=== PATIENT | female | born 1990 | race Caucasian/White ===

== ENCOUNTER → 2017-05-18 | Outpatient (REF) | payer OTHER ==
[~2017-05-18] MED LIST: /AUGM875TA; /CELE20CA; COLA100C2; VICO5TAB
== END ==
LOC: M LAB REF 17:19
PROVIDERS: ATTEND Physician Assistant Medical
DX: N39.0 Urinary tract infection, site not specified (principal)

== ENCOUNTER → 2017-06-18 | Outpatient (REF) | payer OTHER | LOC: M LAB REF 14:18 | PROVIDERS: ATTEND Specialist | DX: Z12.4 Encounter for screening for malignant neoplasm of cervix (principal) ==

== ENCOUNTER 2017-12-11 03:38 | Emergency (ER) | payer OTHER ==
[2017-12-11] MEDS: TOBRAMYCIN 0.3% OPHTH SOLN 5 ML OU (05:15)
[2017-12-11 05:20] LABS: HEMATOCRIT 39.2 % (36.0-47.0); HEMOGLOBIN 13.6 g/dl (12.0-16.0); MEAN CORPUSCULAR HEMOGLOBIN 29.1 pg (27.0-33.0); MEAN CORPUSCULAR HGB CONC 34.7 g/dl (32.0-36.5); MEAN CORPUSCULAR VOLUME 83.8 fl (80.0-96.0); PLATELET COUNT, AUTOMATED 231 10^3/uL (150-450); RED BLOOD COUNT 4.68 10^6/uL (4.00-5.40); RED CELL DISTRIBUTION WIDTH 12.2 % (11.5-14.5); WHITE BLOOD COUNT 8.5 10^3/uL (4.0-10.0)
[2017-12-11 05:23] LABS: ADD MANUAL DIFFER YES; DIFF SLIDE NUMBER 99; POSITIVE DIFF POS FLAG
[2017-12-11 05:57] LABS: HIVEXPOSED0 NEGATIVE (NEGATIVE)
[2017-12-11 05:58] LABS: ATYPICAL LYMPH 6 % (0-5); EOSINOPHILS 2 % (0-5); LYMPHOCYTES 49 % (16-52); MONOCYTES 6 % (0-8); NEUTROPHILS 37 % (35-75)
[2017-12-11 05:59] LABS: PLATELET ESTIMATE NORMAL (NORMAL)
[2017-12-11 06:00] LABS: CONTROL LINE INT CTR LINE PRESENT; HIV EXPOSED PT 1 NEGATIVE (NEGATIVE)
[2017-12-11 08:14] LABS: ALBUMIN/GLOBULIN RATIO 1.25 (1.00-1.93); ALKALINE PHOSPHATASE 41 U/L (45-117); ALT/SGPT 12 U/L (12-78); ANION GAP 11 MEQ/L (8-16); AST/SGOT 10 U/L (7-37); BILIRUBIN,TOTAL 0.2 MG/DL (0.2-1.0); BLOOD UREA NITROGEN 19 MG/DL (7-18); CARBON DIOXIDE LEVEL 23 MEQ/L (21-32); CHLORIDE LEVEL 107 MEQ/L (98-107); CREATININE FOR GFR 0.76 MG/DL (0.55-1.30); GLOMERULAR FILTRATION RATE > 60.0 (>60); GLUCOSE, FASTING 83 MG/DL (70-100); POTASSIUM SERUM 3.8 MEQ/L (3.5-5.1); SODIUM LEVEL 141 MEQ/L (136-145); TOTAL PROTEIN 7.2 GM/DL (6.4-8.2)
[2017-12-13 10:17] LABS: HEPATITIS B SURFACE ANTIBODY NEGATIVE (POSITIVE)
[2017-12-13 10:26] LABS: HEPATITIS B SURFACE ANTIGEN NEGATIVE (NEGATIVE)
[2017-12-13 10:51] LABS: HEPATITIS C VIRUS ABY INDEX < 0.0 INDEX (<0.8)
== END 2017-12-11 05:33 | disposition home or self-care (01) ==
LOC: M ED 03:38
DX: Z77.21 Contact with and (suspected) exposure to potentially hazardous body fluids (principal)
CPT/HCPCS: 80053

== ENCOUNTER 2018-03-28 08:52 | Emergency (ER) | payer OTHER ==
[2018-03-28] MEDS: ADACEL/BOOSTRIX VACCINE (DIPHTH/PERTUSS/ACELL/TETANUS)0.5ML SYR (90715) IM (10:19)
[2018-03-28] MEDS: RABIES VACCINE HUMAN 2.5 INTERNATIONAL UNITS/ML VIAL (90675) IM (10:27)
[2018-03-28] MEDS: RABIES IMMUNE GLOBULIN 1500 INTERNATIONAL UNITS/10 ML VIAL (90375) IM (10:28)
== END 2018-03-28 11:01 | disposition home or self-care (01) ==
LOC: M ED 08:52
DX: Z20.3 Contact with and (suspected) exposure to rabies (principal); Z23 Encounter for immunization
CPT/HCPCS: 90715

== ENCOUNTER 2018-03-31 11:13 | Emergency (ER) | payer OTHER ==
[2018-03-31] MEDS: RABIES VACCINE HUMAN 2.5 INTERNATIONAL UNITS/ML VIAL (90675) IM (12:58)
== END 2018-03-31 13:06 | disposition home or self-care (01) ==
LOC: M ED 11:13
DX: Z20.3 Contact with and (suspected) exposure to rabies (principal); Z23 Encounter for immunization
CPT/HCPCS: 90675

== ENCOUNTER 2018-04-04 06:25 | Emergency (ER) | payer OTHER ==
[2018-04-04] MEDS: RABIES VACCINE HUMAN 2.5 INTERNATIONAL UNITS/ML VIAL (90675) IM (06:53)
== END 2018-04-04 07:03 | disposition home or self-care (01) ==
LOC: M ED 06:25
DX: Z20.3 Contact with and (suspected) exposure to rabies (principal); Z23 Encounter for immunization
CPT/HCPCS: 90675

== ENCOUNTER 2018-04-11 19:08 | Emergency (ER) | payer OTHER ==
[2018-04-11] MEDS: RABIES VACCINE HUMAN 2.5 INTERNATIONAL UNITS/ML VIAL (90675) IM (19:41)
== END 2018-04-11 19:46 | disposition home or self-care (01) ==
LOC: M ED 19:08
DX: Z20.3 Contact with and (suspected) exposure to rabies (principal); Z23 Encounter for immunization
CPT/HCPCS: 90675

== ENCOUNTER 2018-05-29 00:30 | Observation (INO) | payer OTHER ==
[2018-05-29] MEDS ORDERED: PERCOCET 5MG/325MG TAB PO (01:15)
[2018-05-29] MEDS ORDERED: ACETAMINOPHEN TAB 650MG DOSE (2X325MG) PO (01:15)
[2018-05-29 01:28] LABS: BASO % 0.1 % (0.0-1.0); HEMATOCRIT 39.1 % (36.0-47.0); HEMOGLOBIN 13.5 g/dl (12.0-15.5); IMMATURE GRANULOCYTE % 0.4 % (0-3.0); LYMPH # 0.9 10^3/uL (1.5-6.5); LYMPH % 8.1 % (24.0-44.0); MEAN CORPUSCULAR HEMOGLOBIN 28.8 pg (27.0-33.0); MEAN CORPUSCULAR HGB CONC 34.5 g/dl (32.0-36.5); MEAN CORPUSCULAR VOLUME 83.5 fl (80.0-96.0); MONO # 0.7 10^3/uL (0.0-0.8); MONO % 6.5 % (0.0-5.0); NEUTROPHILS # 9.5 10^3/uL (1.8-7.7); NEUTROPHILS % 84.9 % (36.0-66.0); PLATELET COUNT, AUTOMATED 219 10^3/uL (150-450); RED BLOOD COUNT 4.68 10^6/uL (4.00-5.40); RED CELL DISTRIBUTION WIDTH 12.5 % (11.5-14.5); WHITE BLOOD COUNT 11.2 10^3/uL (4.0-10.0)
[2018-05-29 01:45] LABS: ANION GAP 10 MEQ/L (8-16); BLOOD UREA NITROGEN 14 MG/DL (7-18); CALCIUM LEVEL 8.6 MG/DL (8.5-10.1); CARBON DIOXIDE LEVEL 23 MEQ/L (21-32); CHLORIDE LEVEL 111 MEQ/L (98-107); CREATININE FOR GFR 0.77 MG/DL (0.55-1.30); GLOMERULAR FILTRATION RATE > 60.0 (>60); GLUCOSE, FASTING 124 MG/DL (70-100); POTASSIUM SERUM 3.6 MEQ/L (3.5-5.1); SODIUM LEVEL 144 MEQ/L (136-145)
[2018-05-29] MEDS: PERCOCET 5MG/325MG TAB PO ×4 (02:16→21:54)
[2018-05-29] MEDS: MORPHINE 4 MG/ML 1ML VIAL/SYRINGE (J2270) IV ×2 (05:54→18:37)
[2018-05-29] MEDS: SENOKOT S TAB PO ×2 (09:00→21:13)
[2018-05-29] MEDS: KETOROLAC 30 MG/ML VIAL (J1885) IV (10:22)
[2018-05-29] MEDS: CelecoXIB (CeleBREX) 100 MG CAP PO ×2 (11:00→23:06)
[2018-05-29] MEDS: BACLOFEN 5MG PER 1/2 TABLET PO ×2 (12:13→21:13)
[2018-05-29] MEDS: ENOXAPARIN 40 MG/0.4 ML SYRINGE (J1650) SC (16:31)
[2018-05-29] MEDS: ONDANSETRON 4MG/2ML VIAL (J2405) IV (19:37)
[2018-05-30] MEDS: PERCOCET 5MG/325MG TAB PO (04:11)
[2018-05-30] MEDS: ONDANSETRON 4MG/2ML VIAL (J2405) IV (08:25)
[2018-05-30] MEDS ORDERED: SLF 3 ML SYR IV ×2 (08:45→14:00)
[2018-05-30] MEDS: BACLOFEN 5MG PER 1/2 TABLET PO (09:49)
[2018-05-30] MEDS: SENOKOT S TAB PO (09:49)
[2018-05-30] MEDS: CelecoXIB (CeleBREX) 100 MG CAP PO (09:52)
[2018-05-30] MEDS: ENOXAPARIN 40 MG/0.4 ML SYRINGE (J1650) SC (10:14)
== END 2018-05-30 13:10 | disposition home or self-care (01) ==
LOC: M ED INP 00:30 → M PCU 00:49
DX: S32.019A Unspecified fracture of first lumbar vertebra, initial encounter for closed fracture (principal); S22.42XA Multiple fractures of ribs, left side, initial encounter for closed fracture; S27.0XXA Traumatic pneumothorax, initial encounter; S80.11XA Contusion of right lower leg, initial encounter; V86.65XA Passenger of 3- or 4- wheeled all-terrain vehicle (ATV) injured in nontraffic accident, initial encounter; Z79.899 Other long term (current) drug therapy; Y92.89 Other specified places as the place of occurrence of the external cause; Y93.55 Activity, bike riding; Y99.9 Unspecified external cause status
CPT/HCPCS: J2270

== ENCOUNTER 2018-06-13 07:53 | Outpatient (RCR) | payer OTHER | END 2018-06-26 | LOC: M PT 07:53 | DX: S80.01XD Contusion of right knee, subsequent encounter (principal); S22.42XD Multiple fractures of ribs, left side, subsequent encounter for fracture with routine healing; S22.009D Unspecified fracture of unspecified thoracic vertebra, subsequent encounter for fracture with routine healing | CPT/HCPCS: 97110 ==

== ENCOUNTER 2018-06-27 15:30 | Outpatient (RCR) | payer OTHER | END 2018-07-27 | LOC: M PT 06-29 08:06 | DX: S80.01XD Contusion of right knee, subsequent encounter (principal); S22.42XD Multiple fractures of ribs, left side, subsequent encounter for fracture with routine healing; S22.009D Unspecified fracture of unspecified thoracic vertebra, subsequent encounter for fracture with routine healing | CPT/HCPCS: 97110 ==

== ENCOUNTER → 2019-03-07 | Outpatient (REF) | payer OTHER ==
[~2019-03-07] MED LIST changes: -/CELE20CA; +BACL10TA2 PO; +CELE100C PO; +CELE1CAP4; +Docusate Sod/Senna PO; +NUVAMIS2 IU; +PERCOCET PO; +VITMTA PO; +[UNRECOGNIZED DRUG - CODE] XX
[2019-03-07 13:14] LABS: BASO % 0.1 % (0.0-1.0); EOS % 0.6 % (0.0-3.0); HEMATOCRIT 40.2 % (36.0-47.0); HEMOGLOBIN 13.9 g/dl (12.0-15.5); LYMPH # 2.6 10^3/uL (1.5-6.5); LYMPH % 37.2 % (24.0-44.0); MEAN CORPUSCULAR HEMOGLOBIN 29.8 pg (27.0-33.0); MEAN CORPUSCULAR HGB CONC 34.6 g/dl (32.0-36.5); MEAN CORPUSCULAR VOLUME 86.1 fl (80.0-96.0); MONO # 0.5 10^3/uL (0.0-0.8); NEUTROPHILS # 3.8 10^3/uL (1.8-7.7); NEUTROPHILS % 54.8 % (36.0-66.0); PLATELET COUNT, AUTOMATED 242 10^3/uL (150-450); RED BLOOD COUNT 4.67 10^6/uL (4.00-5.40)
[2019-03-07 15:10] LABS: CHLAMYDIA DNA AMPLIFICATION NEGATIVE (NEGATIVE); GC DNA AMPLIFICATION NEGATIVE (NEGATIVE)
[2019-03-08 10:59] LABS: HEPATITIS C VIRUS ABY INDEX < 0.0 INDEX (<0.8); HIV 1&2 SCREEN CENTAUR NEGATIVE (NEGATIVE); RUBELLA IgG QUALITATIVE IMMUNE (IMMUNE)
== END ==
LOC: M LABDRAW1 12:40
PROVIDERS: ATTEND Obstetrics & Gynecology
DX: Z34.81 Encounter for supervision of other normal pregnancy, first trimester (principal); Z3A.08 8 weeks gestation of pregnancy

== ENCOUNTER → 2019-03-14 | Outpatient (REF) | payer OTHER | LOC: M LAB REF 17:27 | PROVIDERS: ATTEND Specialist | DX: Z34.01 Encounter for supervision of normal first pregnancy, first trimester (principal) ==

== ENCOUNTER → 2019-05-08 | Outpatient (CLI) | payer OTHER ==
--- NOTE | 2019-05-08 10:01 | REP ---
REASON: anatomical screen. PRIORS: None. Multiple ultrasonographic images of the gravid uterus show a single living intrauterine gestation in the cephalic presentation. Doppler interrogation of the heart shows a heart rate of 150 beats per minute. The placenta is posterior and not low lying. The subjective amniotic fluid volume is within normal limits. The cervix measures 3.7 cm in length and is closed. Evaluation of the maternal adnexal spaces showed no abnormalities. BPD 4.7 cm = 20 weeks 2 days HC 17.1 cm = 19 weeks 5 days AC 15.3 cm = 20 weeks 4 days FL 3.2 cm = 19 weeks 6 days The estimated weight is 334 grams which is at the 66th percentile for a 19 week 4 day gestational age. The anatomical structures seen as unremarkable are as follows: thalami, cavum septum pellucidum, cerebellum, cisterna magna, cerebral ventricles, spine, kidneys, stomach, cord insertion, three vessel umbilical cord, kidneys, urinary bladder, upper lip, and extremities. The structures seen suboptimally are as follows: Four chamber heart and left ventricular outflow tract. IMPRESSION: Single living intrauterine gestation as described above and estimated gestational age of 20 weeks 0 days via composite criteria and an estimated date of delivery of 09/25/2019 by today's exam. No anomalies were detected, however, I would recommend a followup examination to better visualize the four chamber heart and left ventricular outflow tract. Electronically Signed by Fabián Cheng DO 05/08/2019 10:03 A
== END ==
LOC: M RAD 06:11
PROVIDERS: ATTEND Advanced Practice Midwife
DX: Z34.82 Encounter for supervision of other normal pregnancy, second trimester (principal); Z3A.19 19 weeks gestation of pregnancy

== ENCOUNTER → 2019-06-09 | Outpatient (CLI) | payer OTHER ==
--- NOTE | 2019-06-09 09:16 | REP ---
OB ULTRASOUND: Real-time sonographic evaluation of the gravid uterus performed. There is a single living intrauterine gestation, estimated gestational age 24 weeks 1 day, EDC 09/28/2019. Today's measurements indicate appropriate growth. BPD 59 mm 24 weeks 2 days, 52nd percentile HC 224 mm 24 weeks 3 days, 56th percentile AC 210 mm 25 weeks 4 days, 79th percentile FL 43 mm 24 weeks 1 day, 52nd percentile HC/AC ratio 1.07 within normal range. Estimated weight 742 grams, 67th percentile. Cervix is closed and measures 3.4 cm in length. heart rate 136 beats per minute. SEEN/GROSSLY UNREMARKABLE Lateral ventricles Yes Posterior fossa Yes Upper lip Yes Four-chamber heart Yes LVOT Yes RVOT Yes Stomach Yes Cord insertion Yes Three vessel cord Yes Kidneys Yes Bladder Yes Spine No position: Breech. Placenta: Posterior and grade 0 with no previa or abruption. Amniotic fluid: Within normal limits. Electronically Signed by Brandon Hall MD 06/09/2019 11:30 A
== END ==
LOC: M RAD 08:00
PROVIDERS: ATTEND Advanced Practice Midwife
DX: Z34.82 Encounter for supervision of other normal pregnancy, second trimester (principal)

== ENCOUNTER → 2019-07-10 | Outpatient (CLI) | payer OTHER ==
[2019-07-10 09:59] LABS: HEMATOCRIT 35.1 % (36.0-47.0); HEMOGLOBIN 11.6 g/dl (12.0-15.5); MEAN CORPUSCULAR HEMOGLOBIN 28.9 pg (27.0-33.0); MEAN CORPUSCULAR VOLUME 87.3 fl (80.0-96.0); PLATELET COUNT, AUTOMATED 160 10^3/uL (150-450); RED BLOOD COUNT 4.02 10^6/uL (4.00-5.40); WHITE BLOOD COUNT 9.6 10^3/uL (4.0-10.0)
== END ==
LOC: M LAB 08:12
PROVIDERS: ATTEND Obstetrics & Gynecology
DX: O26.892 Other specified pregnancy related conditions, second trimester (principal); Z3A.00 Weeks of gestation of pregnancy not specified

== ENCOUNTER → 2019-07-17 | Outpatient (REF) | payer OTHER ==
[2019-07-17 17:16] LABS: ALBUMIN 2.8 GM/DL (3.2-5.2); ALT/SGPT 15 U/L (12-78); BILIRUBIN,TOTAL 0.2 MG/DL (0.2-1.0); BLOOD UREA NITROGEN 12 MG/DL (7-18); C REACTIVE PROTEIN QUANTITATIV 1.14 MG/DL (0.00-0.30); CALCIUM LEVEL 8.8 MG/DL (8.5-10.1); CARBON DIOXIDE LEVEL 25 MEQ/L (21-32); CHLORIDE LEVEL 107 MEQ/L (98-107); COMPLEMENT C3 117 MG/DL (90-180); COMPLEMENT C4 24 MG/DL (10-40); CREATININE FOR GFR 0.51 MG/DL (0.55-1.30); GLOMERULAR FILTRATION RATE > 60.0 (>60); GLUCOSE, FASTING 89 MG/DL (70-100); POTASSIUM SERUM 3.9 MEQ/L (3.5-5.1); SODIUM LEVEL 140 MEQ/L (136-145); TOTAL PROTEIN 6.1 GM/DL (6.4-8.2)
[2019-07-18 10:17] LABS: DRVV SCREEN 37.5 SEC; PTT LUPUS TYPE ANTICOAG SCREEN 0.9 (0-1.2)
[2019-07-20 00:16] LABS: CARDIOLIPIN IGA ANTIBODY <9 APL U/mL (0-11); CARDIOLIPIN IGG ANTIBODY <9 GPL U/mL (0-14); CARDIOLIPIN IGM ANTIBODY <9 MPL U/mL (0-12)
== END ==
LOC: M LABDRAW1 15:34
PROVIDERS: ATTEND Specialist
DX: R21 Rash and other nonspecific skin eruption (principal)

== ENCOUNTER → 2019-09-11 | Outpatient (REF) | payer OTHER | LOC: M SFHCWAGY 13:11 | PROVIDERS: ATTEND Specialist | DX: Z34.93 Encounter for supervision of normal pregnancy, unspecified, third trimester (principal) ==

== ENCOUNTER 2019-09-16 16:31 | Outpatient (CLI) | payer OTHER ==
[~2019-09-16] VITALS: Ht 165.1 cm; Wt 87.7 kg
[2019-09-16 16:49] VITALS: BP 123/85
[2019-09-16] MEDS ORDERED: PRENTAB9 PO (16:57)
== END 2019-09-16 18:05 | disposition home or self-care (01) ==
LOC: M LDO 16:31
PROVIDERS: ATTEND Obstetrics & Gynecology
DX: O26.893 Other specified pregnancy related conditions, third trimester (principal); M54.5 Low back pain; O99.89 Other specified diseases and conditions complicating pregnancy, childbirth and the puerperium; N89.8 Other specified noninflammatory disorders of vagina; O47.1 False labor at or after 37 completed weeks of gestation; Z3A.38 38 weeks gestation of pregnancy
CPT/HCPCS: 59025; G0378; G0463

== ENCOUNTER 2019-09-25 21:26 | Inpatient (IN) | payer OTHER ==
[~2019-09-25 21:26] MED LIST changes: +PRENTAB9 PO
[2019-09-25 22:16] LABS: HEMATOCRIT 35.2 % (36.0-47.0); HEMOGLOBIN 11.2 g/dl (12.0-15.5); MEAN CORPUSCULAR HEMOGLOBIN 25.6 pg (27.0-33.0); MEAN CORPUSCULAR HGB CONC 31.8 g/dl (32.0-36.5); MEAN CORPUSCULAR VOLUME 80.5 fl (80.0-96.0); PLATELET COUNT, AUTOMATED 217 10^3/uL (150-450); RED BLOOD COUNT 4.37 10^6/uL (4.00-5.40); WHITE BLOOD COUNT 15.2 10^3/uL (4.0-10.0)
--- NOTE | 2019-09-26 01:39 | IPNPDOC ---
Obstetrical Progress Note Date of Service Sep 26, 2019 Subjective Patient reports her contractions have gotten more painful. Vomiting with contractions. Assessment Heart Rate (FHR): 130 Variability: Moderate Accelerations: Positive Decelerations: None Heart Rate Tracing: Category I Tocometer Contractions: Yes Frequency: regular Sterile Vaginal Examination Dilation: 7 cm Effacement (%): 100% Station: -1 Postion/Presentation: Cephalic presentation Assessment and Plan Status: Reassuring Group B Streptococcus: Negative Anticipate: Vaginal Delivery Additional Comments AROM to a small amount of clear fluid. Zofran ordered due to patient's vomiting. ERNA ARORA CNM Sep 26, 2019 01:39
[2019-09-26] MEDS ORDERED: LR 1,000 ML IV ONE (01:45)
[2019-09-26] MEDS ORDERED: ONDANSETRON 4MG/2ML VIAL (J2405) IV SCH (02:00)
[2019-09-26] MEDS ORDERED: FENTANYL 2MCG/ML ROPIVACAINE 0.2% IN 0.9% NACL 100ML IVBAG As Ordered ONE (02:05)
[2019-09-26] MEDS ORDERED: OXYTOCIN 30 UNITS IN 0.9% NaCl 500ML IV BAG (J2590) As Ordered ONE (03:39)
[2019-09-26] MEDS ORDERED: OXYTOCIN DRIP 30 UNITS in IV 1 EA IV SCH (04:49)
[2019-09-26] MEDS ORDERED: diphenhydrAMINE INJ 50MG/ML VIAL (J1200) IV PRN (05:00)
[2019-09-26] MEDS ORDERED: ANUSOL HC CREAM 30GM TOP PRN (05:00)
[2019-09-26] MEDS ORDERED: EPIDURAL COMMENT XX SCH (05:00)
[2019-09-26] MEDS ORDERED: ONDANSETRON 4MG/2ML VIAL (J2405) IV PRN (05:00)
[2019-09-26] MEDS ORDERED: NALOXONE INJ 0.4 MG/1 ML VIAL (J2310) IV PRN (05:00)
[2019-09-26] MEDS ORDERED: FENTANYL/ROPIVACAINE/NACL BAG 100 ML EPIDURAL SCH (05:00)
[2019-09-26] MEDS ORDERED: ePHEDrine SULFATE 25 MG/5 ML(5MG/ML) SYRINGE IV PRN (05:00)
[2019-09-26] MEDS ORDERED: LIDOCAINE 1% MDV 20ML VIAL INFIL ONE (05:00)
[2019-09-26] MEDS ORDERED: IBUPROFEN 600 MG TAB PO PRN (05:00)
[2019-09-26] MEDS ORDERED: METHYLERGONOVINE MALEATE 0.2 MG TAB PO PRN (05:00)
[2019-09-26] MEDS ORDERED: ACETAMINOPHEN TAB 650MG DOSE (2X325MG) PO PRN (05:00)
[2019-09-26] MEDS ORDERED: RHOGAM 300 MCG (1500 IU) INJ (J2790) IM SCH (05:00)
[2019-09-26] MEDS ORDERED: EPIDURAL/PCA KEYS XX PRN (05:00)
[2019-09-26] MEDS ORDERED: MEASLES,MUMPS,RUBELLA VACCINE INJ (MMR-II) (90707) SC SCH (05:00)
[2019-09-26] MEDS ORDERED: REFRIGERATOR IV KEYS XX PRN (05:00)
[2019-09-26] MEDS: IBUPROFEN 800 MG TAB PO PRN ×3 (05:37→21:03)
--- NOTE | 2019-09-26 06:05 | DNPDOC ---
[facility] Delivery Note Delivery Note DATE OF DELIVERY: 09/26/19 at 0357. PREDELIVERY DIAGNOSIS: 39-5/7 weeks' gestation and labor. POST DELIVERY DIAGNOSIS: Delivered. PROCEDURE: Spontaneous vaginal delivery. PRESIDENT FIN[employer]CIAL INSTITUTION: Erna Camacho CNM, GASPER Melgoza DO PGY 3 present for delivery ANESTHESIA: none-attempted epidural without success. ESTIMATED BLOOD LOSS: 300 mL. FINDINGS: 8 pounds 1 ounce; 3660 grams; female infant, Score 9/10, shoulder dystocia less than 30 seconds resolved with one intervention-Abi. DELIVERY SUMMARY: Patient is a 29-year-old female who is now a at 39.5 weeks gestation who presented to L&D in active labor. The patient attempted to get an epidural without success. She progressed to fully dilated at 0325 and pushed to a living female in the ESHA position with restitution to ROT. The anterior shoulder delivered with a reposition and 2nd attempt of Abi. The corpus immediately followed and was placed [id number] with patient at 0357. The cord was clamped after pulsation ceased and cut by the FOB. The placenta delivered spontaneously and intact at 0400. Uterine hemostasis was achieved via rapid infusion of IV Pitocin and fundal massage. The perineum, vagina, and cervix was inspected and fount to have a left labial laceration with bilateral labial minda-urethral laceration, which was repaired with a 4.0 Vicryl Rapide- RB1. The labial laceration was repaired with a 3.[address]-1. They plan on naming their daughter "Beverly Cardona." Mom plans to breast feed. Both mom and baby are in stable condition. ERNA CAMACHO CNM Sep 26, 2019 06:05
[2019-09-26 07:10] VITALS: BP 117/64
[2019-09-26] MEDS: DIBUCAINE 1% OINTMENT 30GM TOP PRN (07:16)
--- NOTE | 2019-09-26 08:09 | HPE ---
DATE OF ADMISSION: 09/25/2019 CHIEF COMPLAINT: Labor. HISTORY OF PRESENT ILLNESS Valeria is a 28-year-old G0-P0-0-0 at 39 weeks 4 days estimated gestational age by last menstrual period of 12/22/2018 confirmed by first trimester ultrasound. She presents complaining of contractions every 3-5 minutes lasting a minutes each that started about 5:30 p.m. She was seen by Dr. Dyson in the office today who stripped her membranes at that time. She thinks that she broke her water as she was walking into triage. She is feeling baby move. She denies any bleeding or extra discharge. She initiated care at [facility] in the first trimester and has been compliant with treatment. LABS: Blood type O+, antibody screen negative, rubella immune, VDRL nonreactive, hepatitis B surface antigen negative, HIV negative, hepatitis C nonreactive, chlamydia negative gonorrhea negative. Panorama reported at low risk. Diabetes screen negative. Obstetrical ultrasound shows a single intrauterine with a posterior placenta without previa or abruption. OBSTETRICAL HISTORY: None. PAST MEDICAL HISTORY: Asthma and seasonal allergies. MEDICATIONS: vitamins and albuterol inhaler as needed (p.r.n.). PAST SURGICAL HISTORY: Colposcopy. Allergies: None. SOCIAL HISTORY: The patient is . Denies tobacco, alcohol or drug use. PHYSICAL EXAMINATION Abdomen: Gravid. Spontaneous vaginal examination: 5 cm, 80% effaced, -1 station. FHR: Rate is about 138 beats per minute, moderate variability, excels, no decelerations. Category one tracing. TOCO: Contractions every 3-4 minutes. ASSESSMENT/PLAN 1. This is a single intrauterine at 39 weeks 4 days gestation in labor. Admit to labor and delivery with routine labs and orders. 2. GBS negative. No antibiotics needed. 3. Epidural if patient desires. 4. Anticipate spontaneous vaginal delivery. My faculty preceptor for this patient encounter was physically present during the encounter and was fully available. All aspects of the patient interview, examination, medical decision making process, and medical care plan development were reviewed and approved by the faculty preceptor. The faculty preceptor is aware and concurs with the plan as stated in the body of this note and will attest to such by his/her co-signature. ANTONETTE
[2019-09-26] MEDS: PRENATAL VITAMINS CHEWABLE TABLET PO SCH (08:51)
[2019-09-26] MEDS: ACETAMINOPHEN 500 MG TAB PO PRN ×2 (08:52→16:59)
[2019-09-26 17:49] VITALS: BP 114/65
[2019-09-26] MEDS: DOCUSATE SODIUM 100 MG CAP PO PRN (21:02)
[2019-09-27] MEDS: ACETAMINOPHEN 500 MG TAB PO PRN (01:17)
[2019-09-27] MEDS: IBUPROFEN 800 MG TAB PO PRN (05:34)
[2019-09-27 05:59] VITALS: BP 107/60
--- NOTE | 2019-09-27 06:45 | IPNPDOC ---
Text Note Date of Service The patient was seen on 09/27/19. NOTE Day 1 S/p vaginal delivery; uncomplicated S:Patient's pain is well-controlled this time. Lochia and bleeding has been decreasing. Patient is able to get up and walk around without difficulty. Patient is eating and drinking. Patient does complain of some mild cramping. Patient is otherwise doing well. O: vitals see below Gen.: Alert and oriented female who is laying in bed comfortably walked in. Patient was in no acute distress. Abd: Uterine fundus height 1 cm below the umbilicus and firm. Ext: Nonedematous A/P: 29 yo G 1 now P 1. day 1 status post vaginal delivery Hemodynamically stable, afebrile, good pain control. Recovering well. -Routine care and advancement. -Anticipate discharge tomorrow VS,Fishbone, I+O VS, Fishbone, I+O Vital Signs Date Time Temp Pulse Resp B/P (MAP) Pulse Ox O2 Delivery O2 Flow Rate FiO2 09/27/19 05:59 98.1 78 16 107/60 (76) 98 Room Air I&O- Last 24 Hours up to 6 AM 09/27/19 06:00 Intake Total 1500 ml Output Total 800 ml Balance 700 ml GME ATTESTATION GME ATTESTATION My faculty preceptor for this patient encounter was physically present during the encounter and was fully available. All aspects of the patient interview, examination, medical decision making process, and medical care plan development were reviewed and approved by the faculty preceptor. The faculty preceptor is aware and concurs with the plan as stated in the body of this note and will attest to such by his/her cosignature. MICKI MARI DO Sep 27, 2019 06:45
[2019-09-27] MEDS: PRENATAL VITAMINS CHEWABLE TABLET PO SCH (11:07)
[2019-09-27 17:45] VITALS: BP 126/71
[2019-09-27] MEDS: DOCUSATE SODIUM 100 MG CAP PO PRN (20:55)
[2019-09-28] MEDS: IBUPROFEN 800 MG TAB PO PRN (05:38)
[2019-09-28 06:10] VITALS: BP 124/67
[2019-09-28] MEDS: PRENATAL VITAMINS CHEWABLE TABLET PO SCH (08:41)
[2019-09-28] MEDS: ACETAMINOPHEN 500 MG TAB PO PRN (08:42)
[2019-09-28] MEDS: DIBUCAINE 1% OINTMENT 30GM TOP PRN (11:14)
== END 2019-09-28 11:55 | disposition home or self-care (01) | DRG 807 ==
LOC: M LDO 21:26 → M LDI 21:53 → M OBS 09-26 07:00
PROVIDERS: ADMIT Advanced Practice Midwife; ATTEND Advanced Practice Midwife
PROC: 10E0XZZ Delivery of Products of Conception, External Approach (ICD-10-PCS; principal; 2019-09-26)
PROC: 10907ZC Drainage of Amniotic Fluid, Therapeutic from Products of Conception, Via Natural or Artificial Opening (ICD-10-PCS; 2019-09-26)
PROC: 0HQ9XZZ Repair Perineum Skin, External Approach (ICD-10-PCS; 2019-09-26)
PROC: 0UQMXZZ Repair Vulva, External Approach (ICD-10-PCS; 2019-09-26)
DX: O66.0 Obstructed labor due to shoulder dystocia (principal); Z37.0 Single live birth; Z3A.39 39 weeks gestation of pregnancy; O70.0 First degree perineal laceration during delivery; O71.82 Other specified trauma to perineum and vulva

== ENCOUNTER → 2021-01-10 | Outpatient (CLI) | payer OTHER, BC | LOC: M LABSMTC 12:48 | PROVIDERS: ATTEND Anesthesiology | DX: Z01.812 Encounter for preprocedural laboratory examination (principal); Z53.9 Procedure and treatment not carried out, unspecified reason ==

== ENCOUNTER 2021-01-13 10:31 | Day surgery (SDC) | payer BC ==
[~2021-01-13] VITALS: Ht 165.1 cm; Wt 65.8 kg
[~2021-01-13 10:31] MED LIST changes: +LR 1,000 ML IV ONE
[2021-01-13 11:06] LABS: HEMATOCRIT 42.5 % (36.0-47.0); HEMOGLOBIN 14.2 g/dl (12.0-15.5); MEAN CORPUSCULAR HEMOGLOBIN 29.4 pg (27.0-33.0); MEAN CORPUSCULAR HGB CONC 33.4 g/dl (32.0-36.5); PLATELET COUNT, AUTOMATED 258 10^3/uL (150-450); RED BLOOD COUNT 4.83 10^6/uL (4.00-5.40); WHITE BLOOD COUNT 7.7 10^3/uL (4.0-10.0)
[2021-01-13] MEDS ORDERED: LIDOCAINE 1% SDV 30ML VIAL As Ordered ONE (11:47)
[2021-01-13] MEDS ORDERED: ONDANSETRON 4MG/2ML VIAL As Ordered ONE (12:51)
[2021-01-13] MEDS ORDERED: fentaNYL 100 MCG/2 ML INJECTION (J3010) As Ordered ONE (12:51)
[2021-01-13] MEDS ORDERED: propofoL 200 MG/20 ML VIAL As Ordered ONE (12:51)
[2021-01-13] MEDS ORDERED: dexameTHASONE 4 MG/ML 1ML VIAL (J1100 PER 1MG) As Ordered ONE (12:51)
[2021-01-13] MEDS ORDERED: MIDAZOLAM INJ 2MG/2ML VIAL (J2250 PER 1MG) As Ordered ONE (12:51)
[2021-01-13] MEDS ORDERED: KETOROLAC 60MG 2ML VIAL As Ordered ONE (12:51)
[2021-01-13] MEDS ORDERED: LIDOCAINE 2% 100MG/5ML SDV (FOR ANES.) As Ordered ONE (12:51)
[2021-01-13] MEDS ORDERED: ACETAMINOPHEN 1000MG 100ML IV BTL (OFIRMEV) (J0131 PER 10MG) As Ordered ONE (13:05)
[2021-01-13] MEDS ORDERED: METHYLERGONOVINE MALEATE 0.2 MG/ML VIAL (J2210) As Ordered ONE (13:08)
--- NOTE | 2021-01-13 13:33 | ROOPDOC ---
[facility] Report Of Operation Report of Operation DATE OF PROCEDURE: 01/13/21 PREPROCEDURE DIAGNOSES: Embryonic demise POSTPROCEDURE DIAGNOSES: Same. PROCEDURE: DE+C SURGEON: Kristen Kolb MD ANESTHESIA: Gen. via LMA. ESTIMATED BLOOD LOSS: Approximately 600 mL. COMPLICATIONS: None. FINDINGS: Moderate amount of products of conception. PROCEDURE NOTE: Patient was taken to the operating room where LMA anesthesia was induced. She was prepped draped sterile fashion in dorsal lithotomy position. The bladder was emptied with a catheter. A Speculum was placed in the vagina. The anterior lip of the cervix was grasped with tenaculum. Cervix was dilated with tapered dilators. A #9 mm suction curette was inserted through the internal os. Suction device was activated and the curette was gently rotated until products of conception were noted coming through the suction tubing. Sharp curettage was performed. A moderate uterine atony was encountered. The patient received 800 g of Cytotec per rectum. She also received 0.2 mg IM Methergine. Suction curettage was again performed. Uterine cavity was deemed to be empty. Uterine tone improved. Fundal massage was performed. On bimanual exam. All instruments were removed. Sponge, instrument counts were correct. The patient went to the recovery room in stable condition. Visualization the endometrial cavity revealed findings noted above. Sharp curettage was performed. Good hemostasis was noted. All instruments removed. Sponges recounts were correct. KRISTEN KOLB MD Jan 13, 2021 13:33
[2021-01-13] MEDS ORDERED: ONDANSETRON 4MG/2ML VIAL IV PRN (13:40)
[2021-01-13] MEDS ORDERED: fentaNYL 100 MCG/2 ML INJECTION (J3010) IV PRN (13:40)
[2021-01-13] MEDS ORDERED: oxyCODONE 5MG TAB PO PRN (13:40)
[2021-01-13] MEDS ORDERED: HYDROMORPHONE HCL 0.5 MG/ 0.5 ML SYRINGE (J1170 PER 1) IV PRN (13:40)
[2021-01-13] MEDS ORDERED: LR 1,000 ML IV SCH (13:40)
[2021-01-13] MEDS ORDERED: DOXYCYCLINE HYCLATE 100MG TABLET PO ONE (13:45)
[2021-01-13] MEDS ORDERED: ACETAMINOPHEN 500 MG TAB PO ONE (13:45)
[2021-01-13 15:05] VITALS: BP 112/62
== END 2021-01-13 15:25 | disposition home or self-care (01) ==
LOC: M SDC 10:31
PROVIDERS: ATTEND Specialist
DX: O02.1 Missed abortion (principal)
CPT/HCPCS: 36415; 59820; 85027; 88305; J0131; J1100; J1885; J2210; J2250; J2405; J3010

== ENCOUNTER → 2021-04-22 | Outpatient (REF) ==
[~2021-04-22] MED LIST changes: -LR 1,000 ML IV ONE
== END ==
LOC: M EMP 09:45
PROVIDERS: ATTEND Family Medicine
DX: Z20.822 Contact with and (suspected) exposure to COVID-19 (principal)

== ENCOUNTER → 2021-10-23 | Outpatient (CLI) | payer BC | LOC: M PLALAB 11:47 | PROVIDERS: ATTEND Specialist | DX: N92.6 Irregular menstruation, unspecified (principal) ==

== ENCOUNTER → 2021-10-27 | Outpatient (CLI) | payer BC | LOC: M LAB 07:33 | PROVIDERS: ATTEND Specialist | DX: N92.6 Irregular menstruation, unspecified (principal) ==

== ENCOUNTER → 2022-09-18 | Outpatient (CLI) | payer BC ==
[2022-09-18 15:17] LABS: HEMATOCRIT 40.7 % (36.0-47.0); HEMOGLOBIN 13.7 g/dl (12.0-15.5); MEAN CORPUSCULAR HEMOGLOBIN 28.8 pg (27.0-33.0); MEAN CORPUSCULAR HGB CONC 33.7 g/dl (32.0-36.5); MEAN CORPUSCULAR VOLUME 85.7 fl (80.0-96.0); PLATELET COUNT, AUTOMATED 211 10^3/uL (150-450); RED BLOOD COUNT 4.75 10^6/uL (4.00-5.40); WHITE BLOOD COUNT 6.1 10^3/uL (4.0-10.0)
[2022-09-18 16:08] LABS: HIV 1&2 SCREEN CENTAUR NEGATIVE (NEGATIVE)
[2022-09-18 16:16] LABS: HEPATITIS C VIRUS ABY INDEX 0.1 INDEX (<0.8)
[2022-09-18 17:01] LABS: GC DNA AMPLIFICATION NEGATIVE (NEGATIVE)
== END ==
LOC: M PLALAB 09:00
PROVIDERS: ATTEND Advanced Practice Midwife
DX: Z34.91 Encounter for supervision of normal pregnancy, unspecified, first trimester (principal)

== ENCOUNTER → 2022-09-18 | Outpatient (REF) | payer BC | LOC: M PLALAB 08:51 | PROVIDERS: ATTEND Advanced Practice Midwife | DX: Z53.20 Procedure and treatment not carried out because of patient's decision for unspecified reasons (principal) ==

== ENCOUNTER → 2022-12-11 | Outpatient (REF) | payer BC | LOC: M PLALAB 10:12 | PROVIDERS: ATTEND Obstetrics & Gynecology | DX: Z36.89 Encounter for other specified antenatal screening (principal); Z3A.00 Weeks of gestation of pregnancy not specified; Z53.8 Procedure and treatment not carried out for other reasons ==

== ENCOUNTER → 2022-12-11 | Outpatient (CLI) | payer BC | LOC: M WHC 11:34 | PROVIDERS: ATTEND Obstetrics & Gynecology | DX: Z34.92 Encounter for supervision of normal pregnancy, unspecified, second trimester (principal); Z3A.24 24 weeks gestation of pregnancy ==

== ENCOUNTER → 2023-01-08 | Outpatient (CLI) | payer BC ==
[2023-01-08 13:15] LABS: HEMATOCRIT 38.2 % (36.0-47.0); HEMOGLOBIN 12.7 g/dl (12.0-15.5); MEAN CORPUSCULAR HEMOGLOBIN 28.9 pg (27.0-33.0); MEAN CORPUSCULAR HGB CONC 33.2 g/dl (32.0-36.5); PLATELET COUNT, AUTOMATED 198 10^3/uL (150-450); RED BLOOD COUNT 4.39 10^6/uL (4.00-5.40); WHITE BLOOD COUNT 10.1 10^3/uL (4.0-10.0)
[2023-01-08 14:37] LABS: GC DNA AMPLIFICATION NEGATIVE (NEGATIVE)
== END ==
LOC: M LAB 11:06
PROVIDERS: ATTEND Obstetrics & Gynecology
DX: Z34.92 Encounter for supervision of normal pregnancy, unspecified, second trimester (principal)

== ENCOUNTER → 2023-03-05 | Outpatient (REF) | payer BC ==
[~2023-03-05] MED LIST changes: +ETON1VAG7 IU; -NUVAMIS2 IU
== END ==
LOC: M SFHCWAGY 16:59
PROVIDERS: ATTEND Obstetrics & Gynecology
DX: Z34.93 Encounter for supervision of normal pregnancy, unspecified, third trimester (principal)

== ENCOUNTER → 2023-03-19 | Outpatient (CLI) | payer BC | LOC: M WHC 08:52 | PROVIDERS: ATTEND Obstetrics & Gynecology | DX: Z36.89 Encounter for other specified antenatal screening (principal); Z87.59 Personal history of other complications of pregnancy, childbirth and the puerperium; Z3A.30 30 weeks gestation of pregnancy ==

== ENCOUNTER 2023-03-31 18:39 | Inpatient (IN) | payer BC ==
[~2023-03-31] VITALS: Ht 165.1 cm; Wt 85.5 kg
[2023-03-31 18:58] VITALS: BP 143/77
[2023-03-31] MEDS ORDERED: TRANEXAMIC ACID INJection 1,000 MG in NS 100 ML IV PRN (19:05)
[2023-03-31] MEDS ORDERED: LR 1,000 ML IV SCH (19:05)
[2023-03-31] MEDS ORDERED: CARBOPROST TROMETHAMINE 250 MCG/ML AMP IM PRN (19:05)
[2023-03-31] MEDS ORDERED: LACTATED RINGER'S 1000 ML IV STA (19:05)
[2023-03-31] MEDS ORDERED: LIDOCAINE 1% MDV 20ML VIAL INFIL PRN (19:05)
[2023-03-31] MEDS ORDERED: OXYTOCIN DRIP 30 UNITS in IV 1 EA IV PRN (19:05)
[2023-03-31] MEDS ORDERED: METHYLERGONOVINE MALEATE 0.2MG/ML 1ML VIAL IM PRN (19:05)
[2023-03-31 19:41] LABS: HEMATOCRIT 36.3 % (36.0-47.0); HEMOGLOBIN 11.6 g/dl (12.0-15.5); MEAN CORPUSCULAR VOLUME 81.2 fl (80.0-96.0); PLATELET COUNT, AUTOMATED 112 10^3/uL (150-450); RED BLOOD COUNT 4.47 10^6/uL (4.00-5.40); WHITE BLOOD COUNT 9.8 10^3/uL (4.0-10.0)
[2023-03-31] MEDS ORDERED: PRENTAB9 PO (20:13)
[2023-03-31] MEDS ORDERED: HOME MED LIST COMPLETE! XX SCH (20:15)
[2023-03-31 20:48] VITALS: BP 119/80
[2023-03-31] MEDS ORDERED: OXYTOCIN DRIP 30 UNITS in IV 1 EA IV SCH (22:35)
[2023-03-31 22:53] VITALS: BP 117/71
[2023-03-31 23:34] VITALS: BP 109/70
[2023-04-01] VITALS (26 sets, daily range): BP systolic 82–130; BP diastolic 40–80; O2SAT 97–98
[2023-04-01] MEDS ORDERED: NALBUPHINE HCL 10 MG/ML 1ML AMP IV PRN
[2023-04-01] MEDS ORDERED: PROMETHAZINE 25MG/ML 1ML VIAL IV ONE
[2023-04-01] MEDS ORDERED: FENTANYL/ROPIVACAINE/NACL BAG 100 ML EPIDURAL SCH (08:55)
[2023-04-01] MEDS ORDERED: LR 500 ML IV PRN (08:55)
[2023-04-01] MEDS ORDERED: ONDANSETRON 4MG 2ML VIAL IV PRN (08:55)
[2023-04-01] MEDS ORDERED: diphenhydrAMINE 50MG/ML VIAL IV PRN (08:55)
[2023-04-01] MEDS ORDERED: NALOXONE INJ 0.4MG/1ML VIAL IV PRN (08:55)
[2023-04-01] MEDS ORDERED: EPIDURAL/PCA KEYS XX PRN (08:55)
[2023-04-01] MEDS ORDERED: ePHEDrine SULFATE 25 MG/5 ML(5MG/ML) SYRINGE IVP PRN (08:55)
[2023-04-01] MEDS ORDERED: ACETAMINOPHEN TAB 650MG DOSE (2X325MG) PO PRN (11:50)
[2023-04-01] MEDS ORDERED: METHYLERGONOVINE MALEATE 0.2 MG TAB PO PRN (11:50)
[2023-04-01] MEDS ORDERED: DOCUSATE SODIUM 100MG CAPSULE PO PRN (11:50)
[2023-04-01] MEDS ORDERED: IBUPROFEN 600MG TAB PO PRN (11:50)
[2023-04-01] MEDS ORDERED: ACETAMINOPHEN 500 MG TAB PO PRN (11:50)
[2023-04-01] MEDS ORDERED: RHOGAM 300MCG (1500IU) INJ IM SCH (11:50)
[2023-04-01] MEDS: IBUPROFEN 800 MG TAB PO PRN (16:21)
[2023-04-01] MEDS ORDERED: GNP250TA9 PO (17:34)
[2023-04-01] MEDS ORDERED: OMEP10CASR PO (17:34)
[2023-04-01] MEDS ORDERED: ASPI81CH33 PO (17:34)
[2023-04-01] MEDS ORDERED: IRON27TA2 PO (17:34)
[2023-04-01] MEDS ORDERED: [UNRECOGNIZED DRUG - OTHER] PO (17:34)
[2023-04-01] MEDS ORDERED: VITA250T4 PO (17:34)
[2023-04-01] MEDS: DIBUCAINE 1% OINTMENT 30GM TOP PRN (20:36)
[2023-04-02 05:39] VITALS: BP 103/60; O2SAT 98
[2023-04-02] MEDS ORDERED: PRENATAL VITAMINS CHEWABLE TABLET PO SCH (09:00)
[2023-04-02] MEDS: IBUPROFEN 800 MG TAB PO PRN (09:27)
[2023-04-02] MEDS: DIBUCAINE 1% OINTMENT 30GM TOP PRN (12:33)
[2023-04-03] MEDS ORDERED: MEASLES,MUMPS,RUBELLA VACCINE INJ (MMR-II) SC.IMMUN ONE (09:00)
== END 2023-04-02 13:46 | disposition home or self-care (01) | DRG 560 ==
LOC: M LDO 18:39 → M LDI 19:06 → M OBS 04-01 14:03
PROVIDERS: ADMIT Advanced Practice Midwife; ATTEND Advanced Practice Midwife
PROC: 10E0XZZ Delivery of Products of Conception, External Approach (ICD-10-PCS; principal; 2023-04-01)
DX: O66.0 Obstructed labor due to shoulder dystocia (principal); Z37.0 Single live birth; Z3A.40 40 weeks gestation of pregnancy

== ENCOUNTER → 2025-04-20 | Outpatient (REF) | payer BC ==
[~2025-04-20] MED LIST changes: +ASPI81CH33 PO; +GNP250TA9 PO; +IRON27TA2 PO; +OMEP10CASR PO; +VITA250T27 PO; +[UNRECOGNIZED DRUG - OTHER] PO
[2025-04-24 14:57] LABS: HPV APTIMA Not Detected (Not Detected)
== END ==
LOC: M SFHCWAGY 13:23
PROVIDERS: ATTEND Obstetrics & Gynecology
DX: Z12.4 Encounter for screening for malignant neoplasm of cervix (principal)